=== PATIENT | female | born 1965 | race Caucasian/White ===

== ENCOUNTER 2020-09-26 10:46 | Emergency (ER) | payer MEDICARE, BC ==
[~2020-09-26 10:46] MED LIST: ARMOUR THYROID90 MG PO; CARAFATE1 GM PO; CLONIDINE HCL0.3 MG PO; COZAAR100 MG PO; CRESTOR40 MG PO; CYANOCOBAL1000 MCG/1 INJ; DEXILANT60 MG PO; ELAVIL 50 MG TA50 MG PO; ESTRACE2 MG PO; GABAPENTIN300 MG PO; HYDROCODON-ACE1 EAC6 PO; IMITREX100 MG PO; K-DUR TAB 10 M10 MEQ PO; K-DUR TAB 20 M20 MEQ PO; KLONOPIN0.5 MG PO; LASIX40 MG PO; MELATONIN5 M2 PO; NITROGLYCERIN0.4 MG SL; ONDANSETRON ODT4 MG SL; PHENERGAN 25 MG25 M1 PO; PROGESTERONE100 MG PO; SEROQUEL25 MG PO; TOPAMAX100 MG PO; VERAPAMIL ER P300 MG PO; ZOFRAN ODT 4 MG4 MG PO
[2020-09-26 12:12] LABS: BUN/CREATININE RATIO 28 (0-10)
[2020-09-26 12:26] LABS: HEMOGLOBIN 14.6 gm/dl (12.3-15.3); RED BLOOD COUNT 4.23 M/UL (4.00-5.10)
[2020-09-26] MEDS ORDERED: MACROBID 100 M100 MG PO (14:06)
[2020-09-26] MEDS ORDERED: ZOFRAN4 MG PO (14:06)
== END 2020-09-26 14:30 | disposition home or self-care (01) ==
LOC: ER1 10:46
PROVIDERS: Family Medicine
DX: R07.9 Chest pain, unspecified (principal); R10.13 Epigastric pain; R11.0 Nausea; I49.1 Atrial premature depolarization; I10 Essential (primary) hypertension; F17.200 Nicotine dependence, unspecified, uncomplicated; Z87.19 Personal history of other diseases of the digestive system; Z88.2 Allergy status to sulfonamides; Z90.49 Acquired absence of other specified parts of digestive tract; Z90.710 Acquired absence of both cervix and uterus; Z98.51 Tubal ligation status; Z95.0 Presence of cardiac pacemaker
CPT/HCPCS: 71045; 80053; 81001; 82550; 82553; 83735; 83874; 84484; 85025; 93005; 96374; 96375; 99285; J2270; J2405